=== PATIENT | female | born 1935 | race Caucasian/White ===

== ENCOUNTER → 2016-11-20 | Outpatient (CLI) | payer BC ==
[~2016-11-20] MED LIST: ESTR0.5T3 PO; LACT1CAP61 PO; LOSA50TA6 PO; MEDR2.5T PO; POLY17PO5 PO
== END | disposition home or self-care (01) ==
LOC: CFH 14:01 → EDSTATUS 14:15
PROVIDERS: ATTEND Orthopaedic Surgery Adult Reconstructive Orthopaedic Surgery
DX: M51.36 Other intervertebral disc degeneration, lumbar region (principal); M51.27 Other intervertebral disc displacement, lumbosacral region; M48.07 Spinal stenosis, lumbosacral region
CPT/HCPCS: 72148

== ENCOUNTER → 2016-12-12 | Outpatient (CLI) | payer BC | END | disposition home or self-care (01) | LOC: CARD 08:40 | PROVIDERS: ATTEND Orthopaedic Surgery Adult Reconstructive Orthopaedic Surgery | DX: M25.561 Pain in right knee (principal); Z96.651 Presence of right artificial knee joint; G62.9 Polyneuropathy, unspecified; M25.551 Pain in right hip; M79.661 Pain in right lower leg | CPT/HCPCS: 95885; 95909 ==

== ENCOUNTER → 2017-04-30 | Outpatient (CLI) | payer BC ==
[~2017-04-30] MED LIST changes: +AMINOPHYLLINE 25 MG/ML, 10ML ONE; +REGADENOSON 0.4 MG/5 ML SYRINGE ONE
== END | disposition home or self-care (01) ==
LOC: CFH 12:27
PROVIDERS: ATTEND Nurse Practitioner Family
DX: R94.31 Abnormal electrocardiogram [ECG] [EKG] (principal); R00.0 Tachycardia, unspecified
CPT/HCPCS: 78452; 93017; A9502; J0280; J2785

== ENCOUNTER → 2018-02-25 | Outpatient (CLI) | payer BC ==
[~2018-02-25] MED LIST changes: -AMINOPHYLLINE 25 MG/ML, 10ML ONE; -REGADENOSON 0.4 MG/5 ML SYRINGE ONE
== END | disposition home or self-care (01) ==
LOC: CFH 08:40
PROVIDERS: ATTEND Nurse Practitioner Family
DX: K76.89 Other specified diseases of liver (principal); R10.11 Right upper quadrant pain
CPT/HCPCS: 76700

== ENCOUNTER → 2020-07-05 | Outpatient (CLI) | payer BC ==
[~2020-07-05] MED LIST changes: +LOSA50TA14 PO; -LOSA50TA6 PO; +REGADENOSON 0.4 MG/5 ML SYRINGE ONE
== END | disposition home or self-care (01) ==
LOC: CFH 12:40
PROVIDERS: ATTEND Internal Medicine Cardiovascular Disease
DX: R94.31 Abnormal electrocardiogram [ECG] [EKG] (principal); I10 Essential (primary) hypertension
CPT/HCPCS: 78452; 93017; A9502; J2785

== ENCOUNTER 2020-07-25 17:48 | Emergency (ER) | payer BC ==
[~2020-07-25] VITALS: Ht 157.5 cm; Wt 54.6 kg
[~2020-07-25 17:48] MED LIST changes: -REGADENOSON 0.4 MG/5 ML SYRINGE ONE
[2020-07-25 18:46] LABS: ANION GAP 4 mmol/L (5-15); CALCIUM 8.9 mg/dL (8.5-10.1); CHLORIDE 111 mmol/L (98-107); CREATININE 1.04 mg/dL (0.55-1.02)
[2020-07-25] MEDS ORDERED: METO25TA91 PO (18:48)
[2020-07-25] MEDS ORDERED: PRAZ2CAP2 PO (18:50)
--- NOTE | 2020-07-25 18:54 | NUR ---
PT RESTING ON GUCAIO, REPORTS SHE FEELS BETTER.
[2020-07-25] MEDS ORDERED: LOSARTAN 25MG TABLET PO ONE (19:30)
[2020-07-25 19:45] VITALS: BP 156/58
== END 2020-07-25 19:57 | disposition home or self-care (01) ==
LOC: ED 18:34
DX: I10 Essential (primary) hypertension (principal); M54.2 Cervicalgia; R07.89 Other chest pain; Z85.3 Personal history of malignant neoplasm of breast
CPT/HCPCS: 36415; 80048; 93005; 99284

== ENCOUNTER → 2020-10-31 | Outpatient (CLI) | payer BC ==
[~2020-10-31] MED LIST changes: +METO25TA91 PO; +PRAZ2CAP2 PO
== END | disposition home or self-care (01) ==
LOC: CVU 07:39
PROVIDERS: ATTEND Internal Medicine Cardiovascular Disease
DX: I65.29 Occlusion and stenosis of unspecified carotid artery (principal)
CPT/HCPCS: 93880